=== PATIENT | female | born 1960 ===

== ENCOUNTER 2017-08-08 13:04 | Emergency (ER) | payer MEDICARE, BC ==
[2017-08-08 13:04] VITALS: BMI 28.3
[2017-08-08 13:10] VITALS: TEMP 98
[2017-08-08 13:45] VITALS: O2SAT 100
--- NOTE | 2017-08-08 14:09 | ED PDOC ---
Upper Extremity Pain/Injury Time Seen by Provider: 08/08/17 13:25 Chief Complaint (Nursing): Upper Extremity Problem/Injury Chief Complaint (Provider): Fistula on Left Arm History Per: Patient History/Exam Limitations: no limitations Onset/Duration Of Symptoms: Mins Current Symptoms Are (Timing): Still Present Additional Complaint(s): Ban Cordero, a 57 year old female, with a past medical history of hypertension and chronic kidney disease is brought into the ED by EMS with a bleeding fistula on her left arm. The patient states that while at home she was in the shower when the fistula began to bleed. She reports that the EMS were called who applied a tourniquet to control bleeding. In Ed patient is only complaining of pain and bleeding. PMD: Navid Lee Past Medical History Reviewed: Historical Data, Nursing Documentation, Vital Signs Vital Signs: Last Vital Signs Temp 98.0 F 08/08/17 13:05 Pulse 81 08/08/17 13:45 Resp 16 08/08/17 13:45 BP 131/84 08/08/17 13:45 Pulse Ox 100 08/08/17 13:45 - Medical History PMH: HTN, Chronic Kidney Disease - Surgical History Surgical History: No Surg Hx - Family History Family History: States: Unknown Family Hx - Living Arrangements Living Arrangements: With Family - Social History Current smoker - smoking cessation education provided: No Ex-Smoker (has not smoked in the last 12 months): No Alcohol: None Drugs: Denies - Home Medications Home Medications: Ambulatory Orders Medication Instructions Recorded Carvedilol [Coreg] 25 mg PO DAILY 11/13/14 Cinacalcet Hydrochloride [Sensipar] 90 mg PO DAILY 11/13/14 Cyclobenzaprine HCl [Flexeril] 1 tab PO TID PRN #25 tab 11/13/14 Omeprazole 40 mg PO DAILY 11/13/14 Sevelamer Carbonate [Renvela] 800 mg PO BID 11/13/14 Tramadol HCl/Acetaminophen 1 tab PO Q4 #14 tab 11/13/14 [Ultracet Tablet] Aspirin [Ecotrin] 81 mg PO DAILY #0 tabec 01/12/16 Cinacalcet [Sensipar] 90 mg PO DAILY #0 tab 01/12/16 Cyclobenzaprine [Flexeril] 10 mg PO DAILY #0 tab 01/12/16 Sevelamer Carbonate [Renvela] 800 mg PO TIDCC #0 tab 01/12/16 traMADol [Ultram] 25 mg PO Q8H PRN #0 tab 01/12/16 - Allergies Allergies/Adverse Reactions: Allergies Allergy/AdvReac Type Severity Reaction Status Date / Time iodine Allergy ITCHING Verified 01/10/16 22:14 Review of Systems ROS Statement: Except As Marked, All Systems Reviewed And Found Negative Musculoskeletal: Positive for: Arm Pain (left arm pain and bleeding) Physical Exam - Reviewed Nursing Documentation Reviewed: Yes Vital Signs Reviewed: Yes - Physical Exam Appears: Positive for: Non-toxic, No Acute Distress Head Exam: Positive for: ATRAUMATIC, NORMAL INSPECTION, NORMOCEPHALIC Skin: Positive for: Normal Color, Warm, Dry. Negative for: Rash Extremity: Positive for: Normal ROM (left arm tourniquet is applied; underneath dressing there is an area seeping blood a small amout of blood, .5 cm in length 1mm in width; no actively bleeding at time.). Negative for: Tenderness, Deformity, Swelling Neurologic/Psych: Positive for: Alert, Oriented, Gait - ECG O2 Sat by Pulse Oximetry: 100 (RA) Pulse Ox Interpretation: Normal Medical Decision Making Medical Decision Makin Initial Impression 57 y/o female presenting with bleeding fistula from dialysis scab Initial Plan: * Reevaluation Laceration repair performed see procedure note. Scribe Attestation Documented by Марина Padilla acting as a scribe for Paty Mcdaniel MD. Provider Attestation All medical record entries made by the Scribe were at my direction and personally dictated by me. I have reviewed the chart and agree that the record accurately reflects my personal performance of the history, physical exam, medical decision making, and the department course for this patient. I have also personally directed, reviewed, and agree with the discharge instructions and disposition. patient observed. no further bleeding. Will d/c Procedures - Time-Out Type of Procedure: laceration repair Site of Procedure: left arm Correct Patient: Yes Correct Procedure: Yes Correct Site Marked: Yes Physician Name: Dr. Paty Mcdaniel - Laceration/Wound Repair Left Arm Wound Length (cm): 0.5 Wound Repaired With: Sutures Suture Size/Type: 3:0, nylon Wound Complexity: Simple Disposition - Clinical Impression Clinical Impression: Hemorrhage of surgically-created arteriovenous fistula - Patient ED Disposition Is Patient to be Admitted: No Doctor Will See Patient In The: Office Counseled Patient/Family Regarding: Diagnosis, Need For Followup - Disposition Referrals: Karena Chandra [Outside] Disposition: Routine/Home Disposition Time: 14:36 Condition: IMPROVED Instructions: Care For Your Stitches (ED), Laceration (ED) Forms: [employer] (Mexican) Print Language: ENGLISH - RASHAAD Present On Arrival: None
[2017-08-08 15:24] VITALS: BP 146/74; PULSE 75; RESP 14
== END 2017-08-08 15:20 | disposition home or self-care (01) ==
LOC: H.ER 13:04
DX: T82.838A Hemorrhage due to vascular prosthetic devices, implants and grafts, initial encounter (principal); I12.9 Hypertensive chronic kidney disease with stage 1 through stage 4 chronic kidney disease, or unspecified chronic kidney disease; Z79.82 Long term (current) use of aspirin; Z87.891 Personal history of nicotine dependence; Z99.2 Dependence on renal dialysis